=== PATIENT | female | born 1990 | race Caucasian/White ===

== ENCOUNTER 2018-01-26 15:41 | Outpatient (REF) | payer OTHER, SELFPAY | END 2018-01-26 16:01 | LOC: NCHCN 15:41 | PROVIDERS: PCP Nurse Practitioner Family; Visit Provider Nurse Practitioner | DX: R30.0 Dysuria (principal) | CPT/HCPCS: 87086 ==

== ENCOUNTER 2018-01-30 20:58 | Outpatient (REF) | payer OTHER, SELFPAY ==
[2018-02-04 15:28] LABS: Chlamydia Result Negative; GC Result Negative; Specimen Description CERVICAL
== END 2018-01-30 21:18 ==
LOC: NCHCN 20:58
PROVIDERS: PCP Nurse Practitioner Family; Visit Provider Nurse Practitioner Family
DX: R30.0 Dysuria (principal)
CPT/HCPCS: 87491; 87591; 87480; 87510; 87660

== ENCOUNTER 2019-09-29 18:26 | Outpatient (REF) | payer OTHER, SELFPAY ==
--- NOTE | 2019-09-29 16:15 | PAPFT_PTH ---
PATIENT: Magalis De La Garza LOC: [facility] U#:[id number] AGE/SX: 28/F ROOM: RE09/29/[address]: Marcelina Groves : 1990 BED: DIS: 09/29/2019 SPEC #: [id number] RECD: 09/30/19 13:03 STATUS: SETH QUINTEROS #: [id number] LUIGI: 09/29/19 16:[address]: Marcelina Groves DEPT: [facility] Cytology RECD BY: Milagro Castillo ENTERED: 09/30/19 13:04 SP TYPE: PAPFT OTHR DR: Braulio Nickerson Tissues: 1 - CX/ENDOCX FOR PAP SMEARS Procedures: PAP THIN PREP/UVM Screening Comments: [id number] (CHLAMYDIA/GC)
[2019-10-01 16:51] LABS: Chlamydia Result Negative (Negative); GC Result Negative (Negative)
== END 2019-09-29 18:46 ==
LOC: NCHCN 18:26
PROVIDERS: PCP Nurse Practitioner Family; Visit Provider Nurse Practitioner Family
DX: Z12.72 Encounter for screening for malignant neoplasm of vagina (principal)
CPT/HCPCS: 87491; 87591; 88142

== ENCOUNTER 2020-08-24 13:43 | Outpatient (REF) | payer OTHER, SELFPAY ==
[2020-08-24 14:09] LABS: Absolute Basophil Count 0.04 10^3/uL (0.0-0.2); Absolute Eosinophil Count 0.06 10^3/uL (0.0-0.7); Absolute Lymphocyte Count 1.34 10^3/uL (1.2-3.4); Absolute Monocyte Count 0.67 10^3/uL (0.1-0.8); Absolute Neutrophil Count 2.21 10^3/uL (1.2-6.7); Basophils % 0.9; Eosinophils % 1.4; HGB 13.1 g/dL (11.2-15.7); MCH 29.4 pg (27.0-33.0); MCHC 32.8 % (32.0-36.0); MCV 89.7 fL (80-95); MPV 11.3 fL (8.0-11.0); Monocytes % 15.5; Neutrophils % 51.2; Nucleated RBC 0 %; Platelet Count 172 10^3/uL (130-400); RBC 4.46 10^6/uL (3.93-5.22); RDW 11.7 % (11.7-14.6); RDW-SD 38.1 fL; WBC 4.32 10^3/uL (4.4-10.8)
[2020-08-24 14:51] LABS: ALT 17 U/L (14-59); AST 16 U/L (15-37); Albumin 3.4 g/dL (3.4-5.0); Alkaline Phosphatase 195 U/L (46-116); Anion Gap 11.2 mmol/L (3-11); BUN 10 mg/dL (7-18); Bilirubin, Total 0.4 mg/dL (0.2-1.0); CO2 23.8 mmol/L (21.0-32.0); CREATININE 0.9 mg/dL (0.55-1.02); Calcium 8.3 mg/dL (8.5-10.1); Chloride 104 mmol/L (98-107); Glucose 80 mg/dL (74-106); Lipase 58 U/L (73-393); Potassium 4.2 mmol/L (3.5-5.1); Sodium 139 mmol/L (136-145); Total Protein 6.9 g/dL (6.4-8.2)
== END 2020-08-24 13:44 | disposition home or self-care (01) ==
LOC: NCHCN 13:43
PROVIDERS: PCP Nurse Practitioner Family; Visit Provider Internal Medicine
DX: R10.9 Unspecified abdominal pain (principal)
CPT/HCPCS: 80053; 83690; 85025; 86140

== ENCOUNTER 2023-06-13 15:20 | Outpatient (REF) | payer OTHER, SELFPAY ==
--- NOTE | 2023-06-13 08:10 | PAPFT_PTH ---
PATIENT: Magalis De La Garza LOC: [facility] U#:[id number] AGE/SX: 32/F ROOM: RE06/13/[address]: Marcelina Groves : 1990 BED: DIS: 06/13/2023 SPEC #: [id number] RECD: 06/13/23 17:32 STATUS: SETH RESarah #: [id number] LUIGI: 06/13/23 08:[address]: Marcelina Groves DEPT: [facility] Cytology RECD BY: Milagro Castillo ENTERED: 06/13/23 17:32 SP TYPE: PAPFT OTHR DR: Braulio Nickerson Tissues: 1 - CX/ENDOCX FOR PAP SMEARS Procedures: PAP THIN PREP/UVM Screening HPV DNA PROBE Comments: [id number]
== END 2023-06-13 15:21 | disposition home or self-care (01) ==
LOC: NCHCN 15:20
PROVIDERS: PCP Nurse Practitioner Family; Visit Provider Nurse Practitioner Family
DX: Z01.419 Encounter for gynecological examination (general) (routine) without abnormal findings; Z11.51 Encounter for screening for human papillomavirus (HPV)
CPT/HCPCS: 88142; 87624

== ENCOUNTER 2023-09-15 03:24 | Outpatient (CLI) | payer OTHER, SELFPAY ==
[2023-09-15 15:47] LABS: Panorama Kit Sent via Fed Ex
[2023-09-15 15:57] LABS: Abs Immature Grans 0.02 10^3/uL (0.0-0.06); Absolute Basophil Count 0.04 10^3/uL (0.0-0.2); Absolute Lymphocyte Count 1.97 10^3/uL (1.2-3.4); Absolute Monocyte Count 0.52 10^3/uL (0.1-0.8); Absolute Neutrophil Count 5.29 10^3/uL (1.2-6.7); Basophils % 0.5 %; Eosinophils % 1.3 %; HCT 38.1 % (36.0-46.0); HGB 12.9 g/dL (11.2-15.7); Immature Grans % 0.3 %; Lymphocytes % 24.8 %; MCH 29.8 pg (27.0-33.0); MCHC 33.9 % (32.0-36.0); MCV 88 fL (80-95); Monocytes % 6.5 %; Neutrophils % 66.6 %; Platelet Count 220 10^3/uL (130-400); RBC 4.33 10^6/uL (3.93-5.22); RDW 11.4 % (11.7-14.6); WBC 7.94 10^3/uL (4.4-10.8)
[2023-09-16 08:49] LABS: Hepatitis B Surface Ag Negative (Negative)
[2023-09-16 09:36] LABS: Hepatitis C Ab w Rflx HCV PCR Negative (Negative)
[2023-09-16 09:50] LABS: HIV-1/2 Ag & Ab Screen Negative (Negative)
[2023-09-16 10:12] LABS: Varicella IgG Antibody Positive (See Note)
[2023-09-16 10:15] LABS: Rubella IgG Ab (UVM) Positive (See Note)
[2023-09-17 13:49] LABS: Syphilis IgG w/Reflex Nonreactive (Nonreactive)
[2023-09-19 18:39] LABS: Specimen WB Whole Blood
[2023-10-03 16:56] LABS: Result Summary NEGATIVE; Specimen WB Whole Blood
== END 2023-09-15 03:25 | disposition home or self-care (01) ==
LOC: LBO 03:25
PROVIDERS: PCP Nurse Practitioner Family; Visit Provider Advanced Practice Midwife
DX: Z34.91 Encounter for supervision of normal pregnancy, unspecified, first trimester (principal)
CPT/HCPCS: 36415; 81220; 81222; 81329; 86787; 86803; 86850; 86900; 86901; 87340; 87389; 85025; 86762; 86780

== ENCOUNTER 2023-09-15 14:23 | Outpatient (REF) | payer OTHER, SELFPAY ==
[2023-09-15 19:26] LABS: *AMPHETAMINES SCREEN URINE Negative (Negative); *BARBITURATES SCREEN URINE Negative (Negative); *BENZODIAZEPINES SCREEN URINE Negative (Negative); Cannabinoids THC Negative (Negative); Cocaine Screen,Urine Negative (Negative); OPIATES URINE SCREEN Negative (Negative); Tricyclic Antidepressants Negative (Negative)
[2023-09-17 12:32] LABS: Fentanyl Scr w/Rfx Confirm Negative ng/mL (<1)
[2023-09-17 12:36] LABS: Chlamydia Result Negative (Negative); GC Result Negative (Negative)
[2023-09-20 11:12] LABS: Buprenorphine Negative ng/mL (Cutoff: 5.0); Norbuprenorphine Negative ng/mL (Cutoff: 2.5)
== END 2023-09-15 14:24 | disposition home or self-care (01) ==
LOC: LBN 14:23
PROVIDERS: PCP Nurse Practitioner Family; Visit Provider Advanced Practice Midwife
DX: Z34.91 Encounter for supervision of normal pregnancy, unspecified, first trimester
CPT/HCPCS: 80307; 80348; 87491; 87591; 87086

== ENCOUNTER 2023-11-18 09:40 | Outpatient (REF) | payer OTHER, SELFPAY | END 2023-11-18 09:41 | disposition home or self-care (01) | LOC: LBN 09:40 | PROVIDERS: PCP Nurse Practitioner Family; Visit Provider Advanced Practice Midwife | DX: O26.892 Other specified pregnancy related conditions, second trimester (principal); N89.8 Other specified noninflammatory disorders of vagina; Z3A.19 19 weeks gestation of pregnancy | CPT/HCPCS: 87480; 87510; 87660 ==

== ENCOUNTER 2024-01-14 02:25 | Outpatient (CLI) | payer OTHER, SELFPAY ==
[2024-01-14 10:51] LABS: HCT 35.1 % (36.0-46.0); HGB 11.9 g/dL (11.2-15.7); MCH 30.6 pg (27.0-33.0); MCHC 33.9 % (32.0-36.0); MCV 90 fL (80-95); MPV 8.7 fL (8.0-11.0); Platelet Count 211 10^3/uL (130-400); RBC 3.89 10^6/uL (3.93-5.22); RDW-SD 42.9 fL; WBC 12.61 10^3/uL (4.4-10.8)
[2024-01-14 11:20] LABS: Glucose,1 Hr (Glucola) 141 mg/dL (80-140)
[2024-01-14 12:22] LABS: *AMPHETAMINES SCREEN URINE Negative (Negative); *BARBITURATES SCREEN URINE Negative (Negative); *BENZODIAZEPINES SCREEN URINE Negative (Negative); Cannabinoids THC Negative (Negative); Cocaine Screen,Urine Negative (Negative); METHADONE URINE SCREEN Negative (Negative); OPIATES URINE SCREEN Negative (Negative)
[2024-01-14 12:26] LABS: Tricyclic Antidepressants Negative (Negative)
[2024-01-15 11:24] LABS: Fentanyl Scr w/Rfx Confirm Negative ng/mL (<1)
--- NOTE | 2024-01-30 12:33 | W.NUTRFU ---
Date of service: 01/30/24 Time of Service: 12:33 Nutrition Note NOTE: Pt was in for ob visit yesterday and was unable to meet with her at request of provider. Called pt at home later yesterday to offer an outpatient visit or answer ?'s over the phone. Pt declined 3 Hr GTT and is screening capillary glucose fasting in the morning. Concern arose over 2 readings of 95 as fasting glucose. I reviewed glucose targets for fasting, prandial, 1 hour post prandial, and 2 hours post prandial. I suggested she may want to check 2 hours post dinner glucose as well for more information. But also offered to let her use a cgm for glucose readings while she still does a capillary each morning for more accurate reading. Reviewed total carb recommendation of 175-200g per day and emailed a handout that reviewed serving sizes for 15g carb choices. encouraged movement and eating less refined options for carbs and also really trying to keep added sugars <25g per day. Will remain available if patient desires to come in for more in-depth nutrition visit or wants to try cgm monitoring along with fasting capillary checks. Time Spent in Nutritional Counseling and Treatment: 15 minutes
== END 2024-01-14 02:26 | disposition home or self-care (01) ==
LOC: LBO 02:25
PROVIDERS: PCP Nurse Practitioner Family; Visit Provider Advanced Practice Midwife
DX: Z34.92 Encounter for supervision of normal pregnancy, unspecified, second trimester (principal)
CPT/HCPCS: 00123; 36415; 80307; 82950; 85027

== ENCOUNTER 2024-03-19 13:39 | Outpatient (REF) | payer OTHER, SELFPAY | END 2024-03-19 13:40 | disposition home or self-care (01) | LOC: LBN 13:39 | PROVIDERS: PCP Nurse Practitioner Family; Visit Provider Advanced Practice Midwife | DX: Z34.92 Encounter for supervision of normal pregnancy, unspecified, second trimester (principal); Z3A.19 19 weeks gestation of pregnancy | CPT/HCPCS: 87081 ==

== ENCOUNTER 2024-03-28 00:57 | Inpatient (IN) | payer OTHER, SELFPAY ==
[2024-03-28] VITALS (11 sets, daily range): BP systolic 101–125; BP diastolic 56–73; PULSE 78–106; RESP 12–18; TEMP 36.4–36.8; O2SAT 97–99
--- NOTE | 2024-03-28 03:04 | HPE_ITS ---
Date of service: 03/28/24 Time of Service: 03:04 Assessment and Plan Assessment and plan (1) : Status: Acute Assessment and plan: Admit to Center.. Comfort measures. Discussed risks and benefits of labor augmentation. Increased risk of infection also discussed. Magalis prefers no labor augmentation at this time. She reports that she is beginning to feel some mild contractions and she wishes to try to sleep and will plan to reassess when she awakes. Anticipate . Will draw routine admission labs when she awakes. OB-HPI Labor/Delivery History of Present Illness Reason for Visit: rule out labor Chief Complaint: Suspected Rupture of Membranes , Associated Signs and Symptoms of Suspected ROM: no contractions. BUSHRA Calculator Estimated Delivery Date Method Current WG Current Estimate 04/11/24 LMP (Uncertain) 38w 0d Other Estimates 04/12/24 Ultrasound #1 37w 6d Comments: Magalis called and reported leaking of clear fluid. She was leaking clear fluid on arrival. She denied feeling contractions on arrival. History of Present Expected Delivery Route/Plan - CNM FOB - Harpal Barajas (has an 11 yo son (Riccardo) healthy) BG Unmedicated/low intervention (hx of bad reax to nitrous) Taking empowered birthing class Specific Issues/Plan 1. cfDNA low risk x5 female, CF/SMA carrier screens negative 2. Anxiety issues, has a therapist, declines [facility] referral for now. 3. 5P screen+, PHQ9 score=5, initial UDS negative, 28 wk UDS negative 4. FOB is a ([place]), has IDDM, PTSD, depression 5. spotting at 5-19 weeks, small lesion at 1200 on cervix. vaginal pathogen screen neg 6. numbness and tingling right hip and legwhile lying down - referred to PT 7. [id number] @ 27 wks, declined 3 hr GTT, prefers QID testing, start 01/14. Reviewed on 01/28: 2 elevated FBS, continue for 2 more wks. 1/2: FBS 95. Stop monitoring 2 weeks then resume 3x/wk QID testing. 7a. Ralph from Nutrition had 15 minute phone counseling w/pt 01/29: offered CGM and further support, pt declined. 7b. Made dietary changes. Blood sugar testing x 6 days and all WNL. Testing discontinued. Assessment: History Reviewed & Current Informed Consent Informed Consent: Augmentation of Labor (reviewed indication for labor augmentation. Magalis catalan at this time. ) PFSH All Active Problems (Updated 12/02/23 @ 10:10 by Megan Sosa CNM) Discomfort of right hip (Acute) Vaginal discharge during in second trimester (Acute) Anxiety (Chronic) (Acute) Family History (Updated 01/29/24 @ 10:00 by Marina Farnsworth CNM) Maternal Grandmother Diabetes T2DM Maternal Aunt Diabetes T1 DM Maternal Cousin Diabetes T1 DM Other Hyperlipidemia Hypertension Social History (Updated 08/25/23 @ 09:12 by Megan Sosa CNM) Smoking/Tobacco Use Status: Never Smoking risk assessment performed?: Yes Female Reproductive History Menstrual Age of Menarche: 14 Duration of menses: 3-5 days control method: condoms History History 1 Para 0 Hx # Term Pregnancies 0 Multiple births 0 Hx # Pregnancies 0 Ectopic pregnancies 0 AB induced 0 Hx Number of Living Children 0 AB spontaneous 0 Meds Allergies and Home Medications Allergies Allergy/AdvReac Type Severity Reaction Status Date / Time No Known Allergies Allergy Verified 03/25/24 12:55 Home Medications ?Medication ?Instructions ?Recorded ?Confirmed ?Type vitamins no.119-iron tab PO 08/25/23 03/25/24 History fumarate 29 mg-folic acid 1 mg tablet blood sugar diagnostic (FreeStyle #100 ea 01/14/24 03/25/24 Rx Lite Strips) blood-glucose meter (FreeStyle #1 ea 01/14/24 03/25/24 Rx Lite Meter kit) lancets 28 gauge (FreeStyle #100 ea 01/14/24 03/25/24 Rx Lancets) calcium carbonate (Tums) 200 mg PO BID 03/25/24 03/25/24 History Exam Physical Exam Vital signs: Temp Pulse Resp BP Pulse Ox 98.0 F 106 H 18 125/73 97 03/28/24 01:27 03/28/24 01:27 03/28/24 01:27 03/28/24 01:27 03/28/24 01:27 Vital Signs Reviewed: Yes Constitutional Constitutional: no acute distress Detailed Labor and Delivery Exam Dilation: 2 Effacement (%): 80 station: -1 Cervix position: mid Consistency: soft Joiner Score: Cervical Points Exam 0 1 2 3 Dilation Closed 1-2cm 3-4 cm 5-6cm Effacement 0-30% 40-50% 60-70% 80% Consistency Firm Medium Soft Station -3 -2 -1,0 +1,+2 Position Posterior Mid Anterior Amniotic Membrane Status: Ruptured Rupture Method: Spontaneous Amniotic Fluid: Clear Monitor Mode: External Contraction Frequency(min): occasional Contraction Duration(sec): vary Contraction Intensity: Mild Fetus A Heart Rate Baseline: 140 Monitor Accelerations: 15 X 15 Monitor Decelerations: None Variability: Moderate (6-25 BPM) Presentation: Cephalic Categories: Category I Date of Membrane Rupture: 03/27/24 Time of Membrane Rupture: 23:00 HEENT Exam HEENT Exam: Normal Respiratory Exam Respiratory Exam: Normal Cardiovascular Exam Cardiovascular Exam: Normal Exam Exam: Normal Extremities Exam Extremities Exam: Normal Skin Exam Skin Exam: Normal Psychiatric Exam Psychiatric Exam: Normal Risk Assessment Risk for Shoulder Dystocia Historical/Initial OB: NEGATIVE FOR: Pelvic Abnormality, Pre- BMI>30, Previous Shoulder Dystocia or Previous Macrosomia 36 Weeks: POSITIVE FOR: Maternal Weight Gain>40lbs; NEGATIVE FOR: Current Gestational DM or EFW>4500gms 40 Weeks: NEGATIVE FOR: EFW> 4500 gms, Maternal Weight Gain >40lb or Post Dates Increased Risk?: Yes Risk for Pre-Eclampsia Date Initiated/Initials: not indicated. JK Yes, if one or more: NEGATIVE FOR: Hx Pre-E/Gest HTN, Chronic HTN, Multiple Gestation, Pre-gestational DM, Renal Disease, Systemic Lupus or APA Syndrome Yes, if 2 or more: POSITIVE FOR: Nulliparity; NEGATIVE FOR: Age>= 35 yrs, >10yr btwn pregnancies, BMI>30, ethinicty, Mother/Sister w/ Pre-E or Previous IUGR Risk for Post- Hemorrhage Initial: NEGATIVE FOR: Multiple Gestation, Previous PPH, Known Clotting Deficiency, Grand Multiparity or Anticoagulation 36 Weeks: NEGATIVE FOR: Anemia, hgb<10, Low platelets(thrombocytopenia), Gestational HTN or Pre-E, Polyhydraminios or EFW>4500gms 40 Weeks: NEGATIVE FOR: Anemia, hgb<10, Low platelets (thrombocytopenia), Gestation HTN or Pre-E, Polyhydraminios or EFW>4500gms At Risk?: No Risks Reviewed Risks Reviewed Upon Admission: Yes
--- NOTE | 2024-03-28 07:15 | W.PM.OBNL1 ---
Date of service: 03/28/24 Time of Service: 07:15 Informed Consent Informed Consent: Augmentation of Labor (reviewed indication for labor augmentation. Magalis declines at this time. ) Pelvic Exam Dilation: 6 Effacement (%): 100 station: +1 Cervix Position: posterior Consistency: soft Contractions Monitor Mode: Palpation Contraction Frequency(min): every 2-3 minutes Contraction Duration(sec): 50-60 Intensity: Strong Fetus A Monitor: External (US) Heart Rate Baseline: 130 Presentation: Cephalic Variability: Moderate (6-25 BPM) Categories: Category I FHR Rhythm: Regular Decelerations: None Amniotic Membrane Status: Ruptured Assessment and Plan Assessment and plan (1) Spontaneous onset of labor: Status: Acute Assessment and plan: Magalis wishes to use the tub and that was prepared. Will continue to provide comfort measures and Anticipate . Objective Temp Pulse Resp BP Pulse Ox 97.6 F 78 18 124/68 97 03/28/24 05:55 03/28/24 05:55 03/28/24 01:27 03/28/24 05:55 03/28/24 01:27 Subjective Patient Reports: New Complaints Interval history since last seen: Magalis was unable to sleep. She used the shower and ambulated for comfort. She reported an urge to push in the shower. She is coping very well with contractions.
[2024-03-28 07:48] LABS: HCT 39.4 % (36.0-46.0); HGB 13.7 g/dL (11.2-15.7); MCH 31.1 pg (27.0-33.0); MCHC 34.8 % (32.0-36.0); MCV 89 fL (80-95); MPV 9.1 fL (8.0-11.0); Platelet Count 203 10^3/uL (130-400); RBC 4.41 10^6/uL (3.93-5.22); RDW-SD 42.5 fL; WBC 17.41 10^3/uL (4.4-10.8)
--- NOTE | 2024-03-28 09:23 | OBVDS_ITS ---
Date of service: 03/28/24 Time of Service: 09:24 OB Labor/ Delivery Information Baby A Delivery Delivery Method: Spontaneaous Presentation: Cephalic Vertex Position: Left Occipital Anterior Cord Description-Baby A: 3 Vessels Cord Description Comment: short cord Amniotic Fluid: Clear Estimated Blood Loss: 250 Delivery Outcome: Liveborn Infant Transferred: Remains with Mother Providers Nurse Ekg/Ecg Technician: Megan Sosa Printing Sales Representative: Carol Stephens Nurse: Sean Bonilla Nurse: Bebeto Alexis Labor/Delivery Information Number of Babies in Womb: 1 Steroids Given: None Group Beta Strep: Negative Antibiotics Administered: No Rubella Status: Immune Blood Type: O+ Varicella Immunity: Immune Born En Route: No Maternal Complications: None Shoulder Dystocia: No Note: FHTs 130 during first stage of labor. Magalis moved to the tub and shortly after that she began experiencing rectal pressure. FHTs 130s in second stage. She progressed to full dilation and began pushing. Second stage huddle was done. Spontaneous delivery of female infant delivered in ETELVINA position. Baby was placed on mother's abdomen and dried and stimulated. Spontaneous cry. Cord was clamped and cut by the baby's father. The placenta delivered spontaneously and appears to by intact with a three vessel cord. Pitocin 10 units Im was administered before delivery of the placenta. The perineum was inspected and a first degree laceration was repaired. The baby did breastfeed. After delivery, Mother and baby and father of the baby were stable and bonding well in the delivery room and there were no complications. Stages of Labor Onset of Labor Date: 03/28/24 Onset of Labor Time: 04:00 Complete Dilatation Date: 03/28/24 Complete Dilatation Time: 08:00 Labor - Stage 1 Duration: 4 hours and 0 minutes ROM Baby A: 03/27/24 ROM Baby A: 23:00 Delivery Date-Baby A: 03/28/24 Delivery Time-Baby A: 08:33 Labor Stage 2 Duration: 33 minutes Placenta Delivery Time-Baby A: 08:39 Total Length of Labor-Baby A: 4 hours and 33 minutes Placenta Cultured: No Placenta Status: Delivered Placenta Status: Delivered Baby A Infant Gender: Female Gestational Status: Early Term (37-38.6 wks) Gestational Age in Weeks/Days: 37 Weeks and 6 Days Weight Comment: weight pending Score-1 Minute Interval(Baby A) Heart Rate-1 minute: 100 BPM or Greater Respiratory Effort- 1 minute: Spontaneous/Strong Cry Muscle Tone-1 minute: Active Movement Reflex Response-1 minute: Prompt Response Color-1 minute: Bluish Hands or Feet Total Score-1 minute: 9 Score-5 Minute Interval(Baby A) Heart Rate- 5 minute: 100 BPM or Greater Respiratory Effort-5 minute: Spontaneous/Strong Cry Muscle Tone-5 minute: Active Movement Reflex Response-5 minute: Prompt Response Color-5 minute: Bluish Hands or Feet Total Score- 5 minute: 9 Interventions Repair of Laceration Type: Perineal, Laceration Extension: First Degree. Sponge Count Correct: No Sponges Placed in Vagina, Sharp Count Correct: Yes. Laceration Repair Note: 3-0 vicryl suture
[2024-03-28] MEDS: Lidocaine 1% Multi-Dose 20 ML VIAL IJ (10:43)
[2024-03-28] MEDS: Oxytocin 10 UNITS/ML VIAL IM (10:43)
[2024-03-28] MEDS: Dibucaine 1% 28 GM TUBE TP (13:16)
[2024-03-28] MEDS: Hamamelis Leaf/Glycerin 100 EACH BOX PR (13:16)
[2024-03-29 08:13] VITALS: BP 107/70; PULSE 83; RESP 18; TEMP 36.5; O2SAT 97
--- NOTE | 2024-03-29 13:35 | W.PM.OBPNV1 ---
Date of service: 03/29/24 Time of Service: 13:35 Assessment and Plan Assessment and plan (1) Term of female : Status: Acute Assessment and plan: Caring for baby independently. Pain is managed well with oral analgesics. Voiding without difficulty. with assistance of nursing and Suri VÁZQUEZ. A - stable mother and baby , Post day 1 P - Discharge to home tomorrow. Routine post instructions. [facility] Subjective Subjective Interval history: Magalis is tired. She has had some difficulty with latching the baby and she is receiving help from Suri VÁZQUEZ. Patient comments: No complaints Patient's Mood: good [place] baby status: Doing well [place] feeding status: Exclusively breast feeding Exam Physical Exam Vital signs: Temp Pulse Resp BP Pulse Ox 97.7 F 83 18 107/70 97 03/29/24 08:13 03/29/24 08:13 03/29/24 08:13 03/29/24 08:13 03/29/24 08:13 Vital Signs Reviewed: Yes Constitutional Constitutional: no acute distress HEENT Exam HEENT Exam: Normal Neck Exam Neck Exam: Normal Respiratory Exam Respiratory Exam: Normal Cardiovascular Exam Cardiovascular Exam: Normal Fundal Exam Fundus: Below Umbilicus and Firm Extremities Exam Extremity Exam: Normal Skin Exam Skin Exam: Normal Psychiatric Exam Psychiatric Exam: Normal Results Hemoglobin/Hematocrit: Hgb 13.7 g/dL (11.2-15.7) 03/28/24 07:36 Hct 39.4 % (36.0-46.0) 03/28/24 07:36 Abnormal Lab Findings: Abnormal Labs 03/28/24 07:36 WBC 17.41 H
[2024-03-29 21:30] VITALS: BP 108/62; PULSE 73; RESP 18; TEMP 36.8
--- NOTE | 2024-03-30 10:47 | W.PM.OBPNV1 ---
Date of service: 03/30/24 Time of Service: 10:48 Assessment and Plan Assessment and plan (1) Term of female : Status: Acute Assessment and plan: A: PPD 2 P: Discharge to home, support as needed. Routine 2wk/6wk PP visits, BCM undecided (2) care and examination of lactating mother: Status: Acute Subjective Subjective Interval history: Accompanied by FOB Body: sore but improving Pain: tylenol and ibuprofen for afterpains Breast: crack on right nipple, tenderness bilaterally, worked with Suri ROSALES this AM, using gel pads and nipple cream Sleep: RN took baby overnight so parents could sleep Voiding/BM: voiding, no BM yet, no Colacr given, will send home with Rx Patient comments: No complaints, Pain well controlled, Tolerating diet and Flatus present; no Bowel Movement Patient's Mood: calm, excited to go home [place] baby status: Doing well, Nursing well, Rooming in, Strong Bonding Observed and Excessive weight loss (8.5%) [place] feeding status: Exclusively breast feeding Exam Physical Exam Vital signs: Temp Pulse Resp BP Pulse Ox 98.2 F 73 18 108/62 97 03/29/24 21:30 03/29/24 21:30 03/29/24 21:30 03/29/24 21:30 03/29/24 08:13 Vital Signs Reviewed: Yes Constitutional Constitutional: no acute distress HEENT Exam HEENT Exam: Normal Neck Exam Neck Exam: Normal Breast Exam Bilateral: Breast Exam: Normal and Tender Nipple Exam: Bruised Respiratory Exam Respiratory Exam: Normal Cardiovascular Exam Cardiovascular Exam: Normal Abdominal Exam Abdomen: Diastasis Fundal Exam Fundus: Below Umbilicus and Firm Exam Perineum: Repair Intact External: Present tenderness Extremities Exam Extremity Exam: Normal Neurological Exam Neurological Exam: Normal Psychiatric Exam Psychiatric Exam: Normal Results Hemoglobin/Hematocrit: Hgb 13.7 g/dL (11.2-15.7) 03/28/24 07:36 Hct 39.4 % (36.0-46.0) 03/28/24 07:36 Abnormal Lab Findings: Abnormal Labs 03/28/24 07:36 WBC 17.41 H
--- NOTE | 2024-03-30 10:52 | DSE_ITS ---
Date of service: 03/30/24 Time of Service: 10:52 DS: Diagnosis Discharge Diagnosis (1) Term of female : Status: Acute Asessment and Plan: Caring for baby independently. Pain is managed well with oral analgesics. Voiding without difficulty. well. A - stable mother and baby , Post day 2 P - Discharge to home. Routine post instructions. [facility] up at [facility]. (2) care and examination of lactating mother: Status: Acute Discharge Plan Disposition Patient Disposition: Home Condition: Good Discharge Details Reason For Visit: rule out labor Admit Date/Time: 03/28/24 00:58 Admit Provider: Megan Sosa Attending Provider: Megan Sosa Primary Care Provider: Linda Bonner Hospital Course Hospital Course: female infant, first degree laceration repair Home Meds and New Rx's Prescriptions: No Action PNV 119-iron fum-folic acid 29 mg iron- 1 mg tablet 1 tab PO DAILY calcium carbonate [Tums] 200 mg calcium (500 mg) tablet,chewable 200 mg PO BID docusate sodium [Colace] 100 mg capsule 100 mg PO BID 42 Days Qty: 90 4RF Discharge Instructions Stand Alone Forms: BC Instructions, BC Post Vaginal Delive r Activity:: Activity as Tolerated Equipment/Supplies:: No Equipment Needed Diet:: Normal Diet Discharge Orders Discharge Orders: Discharge Order (Routine); Ordered 03/30/24 Ordered By: Marina Farnsworth OB:DS Summary Summary Vaginal Delivery Method: Spontaneaous Episiotomy Description: None Laceration Description: Perineal Laceration Extension: First Degree Contraception Discussed Contraception Discussed: Yes Contraceptive Plan: Undecided, [place] Gender-Baby A: Female Status at Discharge Functional status at discharge: independent ambulation Overall status at discharge: patient is progressing back to baseline Mental Status: mental status grossly normal Speech and Movement: speech and movement normal Mood: congruent mood Affect: normal affect Quality:SDOH Health Related Social Needs: No Data to Display Exam Physical Exam Vital signs: Temp Pulse Resp BP Pulse Ox 98.2 F 73 18 108/62 97 03/29/24 21:30 03/29/24 21:30 03/29/24 21:30 03/29/24 21:30 03/29/24 08:13 Constitutional Constitutional: no acute distress HEENT Exam HEENT Exam: Normal Neck Exam Neck Exam: Normal Breast Exam Bilateral: Breast Exam: Normal and Tender Respiratory Exam Respiratory Exam: Normal Cardiovascular Exam Cardiovascular Exam: Normal Abdominal Exam Abdomen: Diastasis Fundal Exam Fundus: Below Umbilicus and Firm Exam Perineum: Repair Intact External: Present tenderness Extremities Exam Extremity Exam: Normal Neurological Exam Neurological Exam: Normal Psychiatric Exam Psychiatric Exam: Normal PFSH All Active Problems (Updated 03/30/24 @ 10:51 by Marina Farnsworth CNM) care and examination of lactating mother (Acute) Term of female (Acute) Discomfort of right hip (Acute) Anxiety (Chronic) Family History (Updated 01/29/24 @ 10:00 by Marina Farnsworth CNM) Maternal Grandmother Diabetes T2DM Maternal Aunt Diabetes T1 DM Maternal Cousin Diabetes T1 DM Other Hyperlipidemia Hypertension Social History (Updated 08/25/23 @ 09:12 by Megan Sosa CNM) Smoking/Tobacco Use Status: Never Smoking risk assessment performed?: Yes Housing: apartment Female Reproductive History Menstrual Age of Menarche: 14 Duration of menses: 3-5 days control method: condoms History History 1 Para 0 Hx # Term Pregnancies 0 Multiple births 0 Hx # Pregnancies 0 Ectopic pregnancies 0 AB induced 0 Hx Number of Living Children 0 AB spontaneous 0 DS: Data Vitals/I&O Vitals and I&O: Vital Signs Temperature 98.2 F 03/29/24 21:30 Temperature Source Oral 03/29/24 21:30 Pulse 73 03/29/24 21:30 Pulse Rhythm Regular 03/29/24 21:30 Respiratory Rate 18 03/29/24 21:30 Respiratory Depth Normal 03/28/24 19:45 Blood Pressure 108/62 03/29/24 21:30 Blood Pressure Mean 77 03/29/24 21:30 Pulse Oximetry 97 03/29/24 08:13 Oxygen Delivery Method Room Air 03/28/24 01:12 Oxygen Flow Rate 0 03/28/24 01:12 Pain Level 1 03/29/24 21:30 Intake & Output 03/29/24 03/29/24 03/30/24 11:59 23:59 11:59 Other: Urine Color Pale
== END 2024-03-30 12:25 | disposition home or self-care (01) | DRG 807 ==
PROVIDERS: Admitting Provider Advanced Practice Midwife; PCP Nurse Practitioner Family; Visit Provider Advanced Practice Midwife
DX: O99.344 Other mental disorders complicating childbirth (principal); Z37.0 Single live birth; Z3A.38 38 weeks gestation of pregnancy; F41.9 Anxiety disorder, unspecified; O70.0 First degree perineal laceration during delivery
CPT/HCPCS: 36415; 85027; 86850; 86900; 86901; J2003; J2590